=== PATIENT | female | born 1980 | race Caucasian/White ===

== ENCOUNTER 2016-10-20 11:15 | Emergency (ER) | payer SELFPAY ==
[2016-10-20 13:43] VITALS: BP 148/86
--- NOTE | 2016-10-20 14:21 | UC ---
Jo Anderson Salem, scribed for Melinda Maldonado MD on 10/20/16 at 1348 . Dental HPI - HPI Summary HPI Summary: Patient is 36 y/o female who presents to the with a lower left dental discomfort and abscess since this morning. Pt states tooth broke on Fri. She reports a headache, but denies chills, fever, or any rashes. Pt took Ibuprofen at 0630 this morning with little improvement.No ear pain, neck, cp, sob, abd pain. No difficulty with swallowing. No drooling. She has an appointment with her dentist 8 days from today. Pt has a hx of dental abscess. She reports that the last time she received abx for her tooth was 2 years ago. Pt takes Gabapentin as needed, and Xanax and multivitamin daily. Patients medication reviewed this visit. - History of Current Complaint Chief Complaint: UCDentalProblem Stated Complaint: TOOTH COMPLAINT Time Seen by Provider: 10/20/16 13:04 Hx Obtained From: Patient Hx Last Menstrual Period: 10/15/16 Onset/Duration: Gradual Onset, Lasting Hours, Still Present Severity: Moderate Pain Intensity: 0 Pain Scale Used: 0-10 Numeric Aggravating: Nothing Alleviating: Nothing - Allergies/Home Medications Allergies/Adverse Reactions: Allergies Allergy/AdvReac Type Severity Reaction Status Date / Time Acetaminophen [From Vicodin] Allergy Hives/Diff. Verified 10/20/16 12:59 Breathing/I tching Avocado Allergy Hives/Diff. Verified 10/20/16 12:59 Breathing/I tching Cephalexin [From Keflex] Allergy Joint Pain Verified 10/20/16 13:01 Cyclobenzaprine Allergy Hives/Diff. Verified 10/20/16 12:59 [From Flexeril] Breathing/I tching Hydrocodone [From Vicodin] Allergy Hives/Diff. Verified 10/20/16 12:59 Breathing/I tching Latex Allergy Hives/Diff. Verified 10/20/16 12:59 Breathing/I tching Metaxalone [From Skelaxin] Allergy Hives/Diff. Verified 10/20/16 12:59 Breathing/I tching PMH/Surg Hx/FS Hx/Imm Hx Endocrine History Of: Denies: Diabetes, Thyroid Disease Cardiovascular History Of: Reports: Hypertension - NOT BEING TREATED FOR HIGH BLOOD PRESSURE Denies: Cardiac Disorders, Pacemaker/ICD Respiratory History Of: Reports: Asthma - when GI/ History Of: Denies: Ulcer Psychological History Of: Reports: Depression - Surgical History Surgical History: Yes Surgery Procedure, Year, and Place: TUBAL LIGATION - Family History Known Family History: Positive: Hypertension Negative: Diabetes - Social History Alcohol Use: None Substance Use Type: None Substance Use Comment - Amount & Last Used: OXYCODONE Smoking Status (MU): Light Every Day Tobacco Smoker Type: Cigarettes Amount Used/How Often: 1/2 PPD Have You Smoked in the Last Year: Yes Household Exposure Type: Cigarettes Review of Systems Constitutional: Negative Skin: Negative Eyes: Negative ENT: Other - Left lower dental abscess. Respiratory: Negative Cardiovascular: Negative Gastrointestinal: Negative Genitourinary: Negative Motor: Negative Neurovascular: Negative Musculoskeletal: Negative Neurological: Headache All Other Systems Reviewed And Are Negative: Yes Physical Exam Triage Information Reviewed: Yes Appearance: Well-Appearing, Well-Nourished, Pain Distress Vital Signs: Initial Vital Signs Temp 97.5 F 10/20/16 12:55 Pulse 66 10/20/16 12:55 Resp 18 10/20/16 12:55 BP 117/74 10/20/16 12:55 Pulse Ox 100 10/20/16 12:55 Vital Signs Reviewed: Yes Eye Exam: Normal Eyes: Positive: Conjunctiva Clear, Conjunctiva Inflamed ENT: Positive: Pharynx normal, Pharyngeal erythema, TMs normal Dental Exam: Other - #20 large cavity and broken at gumline. + TTP no fluctuance. No discharge No edema of gum Pt with mild edema at left mandible. no erythema. No fluctance. No TTP skin Dental: Positive: Percussion Tenderness @, Gross Decay/Caries @. Negative: Cervical Lymphadenopathy, Bleeding Cardiovascular Exam: Normal Musculoskeletal Exam: Normal Musculoskeletal: Positive: Strength Intact Neurological Exam: Normal Neurological: Positive: Alert, Muscle Tone Normal Psychological Exam: Normal Skin Exam: Normal Dental Complaint Course/Dx - Course Course Of Treatment: Blood pressure noted and patient recommended to follow up with PCP in 7-10 days. Pt with broken tooth, dental cavity with mild facial edema. Will start Clinda. swish/spit. motrin/apap. Pt has dentist appt next week. return prn - Differential Dx/Diagnosis Differential Diagnosis/Dx: Dental Abscess, Dental Caries Provider Diagnoses: dental infection Discharge - Discharge Plan Condition: Stable Disposition: HOME Prescriptions: Clindamycin Cap(NF) [Cleocin 300 mg Cap(NF)] 300 mg PO TID #21 cap Patient Education Materials: Dental Abscess (ED) Referrals: Kaley John MD [Primary Care Provider] - Additional Instructions: - Stay well hydrated - drink plenty of non-caffinated beverages - Take antibiotics as prescribed until gone. These will likely cause diarrhea - It recommended you take yogurt while taking this medication - Swish and spit warm salt water rinses 2-3 times a day - Okay to alternate ibuprofen (Advil, motrin) and tylenol every 3 hours for pain. Take with food - Keep your appointment as scheduled with your dentist. Contact your dentist or return with questions or concerns The documentation as recorded by the Jo white Salem accurately reflects the service I personally performed and the decisions made by , Melinda Maldonado MD.
== END 2016-10-20 14:15 | disposition home or self-care (01) ==
LOC: UCEAST 11:15
DX: K04.7 Periapical abscess without sinus (principal); I10 Essential (primary) hypertension; F32.9 Major depressive disorder, single episode, unspecified; F17.210 Nicotine dependence, cigarettes, uncomplicated; Z88.3 Allergy status to other anti-infective agents; Z88.5 Allergy status to narcotic agent; Z91.040 Latex allergy status
CPT/HCPCS: 99212; G0463

== ENCOUNTER 2016-12-03 09:37 | Emergency (ER) | payer SELFPAY ==
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
[2016-12-03 11:12] VITALS: BP 108/71
== END 2016-12-03 11:07 | disposition home or self-care (01) ==
LOC: ED 09:37
DX: S91.341A Puncture wound with foreign body, right foot, initial encounter (principal); V49.9XXA Car occupant (driver) (passenger) injured in unspecified traffic accident, initial encounter; Y93.9 Activity, unspecified; Y92.9 Unspecified place or not applicable; Y99.9 Unspecified external cause status
CPT/HCPCS: 99283

== ENCOUNTER 2017-04-15 11:24 | Emergency (ER) | payer SELFPAY ==
[2017-04-15] MEDS ORDERED: diPHENhydraMINE IV* 50 MG/ML 1 ml VIAL (BENADRYL) IV ONE (12:37)
[2017-04-15] MEDS ORDERED: Ketorolac INJ* 30 MG/ML 1 ML VIAL IV PUSH ONE (12:37)
--- NOTE | 2017-04-15 12:39 | ED ---
Bite Injury/Animal - HPI Summary HPI Summary: Pt here w/ spider bite to upper inner lip by a sac spider at 1:30am today. She was drinking out of her [employer] mug when she felt like she was being stung along her upper lip - she spit as she thought she had a bee in her mouth and saw a spider. She took a picture and brought this with her - it does appear to be sac spider which can bite in this fashion. She currently has swelling of her upper lip and Rt cheek - able to breath and swallow w/o difficulty. Took 25mg bendaryl so far. Denies fever, chills, N/V/D. Does have a low grade headache starting. Many environmental and medications allergies - no h/o anaphylaxis from insect bites/stings. - History of Current Complaint Chief Complaint: EDGeneral Stated Complaint: SPIDER BITE Time Seen by Provider: 04/15/17 12:06 Hx Obtained From: Patient Hx Last Menstrual Period: 10/15/16 Pain Intensity: 6 - Allergies/Home Medications Allergies/Adverse Reactions: Allergies Allergy/AdvReac Type Severity Reaction Status Date / Time Acetaminophen [From Vicodin] Allergy Hives/Diff. Verified 10/20/16 12:59 Breathing/I tching Avocado Allergy Hives/Diff. Verified 10/20/16 12:59 Breathing/I tching Cephalexin [From Keflex] Allergy Joint Pain Verified 10/20/16 13:01 Cyclobenzaprine Allergy Hives/Diff. Verified 10/20/16 12:59 [From Flexeril] Breathing/I tching Hydrocodone [From Vicodin] Allergy Hives/Diff. Verified 10/20/16 12:59 Breathing/I tching Latex Allergy Hives/Diff. Verified 10/20/16 12:59 Breathing/I tching Metaxalone [From Skelaxin] Allergy Hives/Diff. Verified 10/20/16 12:59 Breathing/I tching PMH/Surg Hx/FS Hx/Imm Hx Previously Healthy: Yes Endocrine/Hematology History: Denies: Hx Anticoagulant Therapy, Hx Blood Disorders, Hx Diabetes, Hx Thyroid Disease, Autoimmune Disease Cardiovascular History: Reports: Hx Hypertension - NOT BEING TREATED FOR HIGH BLOOD PRESSURE Denies: Hx Pacemaker/ICD Respiratory History: Reports: Hx Asthma - when GI History: Denies: Hx Ulcer History: Reports: Other Problems/Disorders - PIP Musculoskeletal History: Reports: Hx Back Problems Sensory History: Denies: Hx Hearing Aid Neurological History: Reports: Hx Headaches Denies: Other Neuro Impairments/Disorders Psychiatric History: Reports: Hx Depression, Hx Panic Disorder - takes xanax for anxiety - Surgical History Surgery Procedure, Year, and Place: TUBAL LIGATION - Immunization History Immunizations Up to Date: Yes Infectious Disease History: No Infectious Disease History: Denies: Hx Hepatitis, Hx Human Immunodeficiency Virus (HIV), History Other Infectious Disease, Traveled Outside the [place] in Last 30 Days - Family History Known Family History: Positive: Hypertension Negative: Diabetes - Social History Occupation: Employed Full-time - self employed as COMMERCIAL MARKETING SPECIALIST Lives: With Family Alcohol Use: Rare Hx Substance Use: No - pt denies illicit drug use Substance Use Type: Reports: None Substance Use Comment - Amount & Last Used: OXYCODONE Hx Tobacco Use: Yes Smoking Status (MU): Light Every Day Tobacco Smoker Type: Cigarettes Amount Used/How Often: 1/2 PPD Have You Smoked in the Last Year: Yes Review of Systems Constitutional: Negative Positive: Blurred Vision ENT: Other - swollen lip per HPI Negative: Sore Throat, Ear Ache, Nasal Discharge Respiratory: Negative Negative: Shortness Of Breath Gastrointestinal: Negative Negative: Abdominal Pain, Vomiting, Diarrhea, Nausea Positive: no symptoms reported Musculoskeletal: Negative Skin: Other - see HPI Positive: Headache - see HPI. Negative: Weakness, Paresthesia, Numbness, Syncope, Slurred Speech Psychological: Normal All Other Systems Reviewed And Are Negative: Yes Physical Exam Triage Information Reviewed: Yes Vital Signs On Initial Exam: Initial Vitals Temp Pulse Resp BP Pulse Ox 97.9 F 73 16 128/82 98 04/15/17 11:40 04/15/17 11:40 04/15/17 11:40 04/15/17 11:40 04/15/17 11:40 Vital Signs Reviewed: Yes Appearance: Positive: Well-Nourished - appears to be in mild distress - resting on stretcher upon entrance to room - Rt cheek w/ mild edema, mild nasolabial blunting - TTP; no submandibular nor cc LN's palpated Skin: Positive: Warm, Dry Head/Face: Positive: Other - as above Eyes: Positive: Normal, EOMI, BEATRIS, Conjunctiva Clear. Negative: Conjunctiva Inflammed, Discharge ENT: Positive: Hearing grossly normal, Pharynx normal, Other - upper lip w/ central and Rt sided edema - no entrance wound observed but pt reports she saw 2 fang brumfield immediately after bite within mucosa. Negative: Nasal congestion, Nasal drainage, Tonsillar swelling, Tonsillar exudate Dental: Positive: Gross Decay/Caries @ Neck: Positive: Supple, Nontender, No Lymphadenopathy Respiratory/Lung Sounds: Positive: Clear to Auscultation, Breath Sounds Present. Negative: Stridor, Wheezes Cardiovascular: Positive: Normal, RRR Abdomen Description: Positive: Soft Bowel Sounds: Positive: Present Musculoskeletal: Positive: Normal, Strength/ROM Intact Neurological: Positive: Normal, Sensory/Motor Intact, Alert, Oriented to Person Place, Time, CN Intact II-III Psychiatric: Positive: Normal - concerned but cooperative Diagnostics - Vital Signs Vital Signs Temp Pulse Resp BP Pulse Ox 04/15/17 11:40 97.9 F 73 16 128/82 98 - Laboratory Lab Statement: Any lab studies that have been ordered have been reviewed, and results considered in the medical decision making process. Bite Injury Course/Dx - Course Course Of Treatment: Pt presents w/ sac spider bite to upper lip w/ swelling, pain and headache. These are common results of a bite which is reported by up to date as having a low risk of necrosis and if it does occur, is mild. Educated pt about what to expect and when to seek further medical attention. She agrees w/ plan. Will refrain from steroids to prevent furthering risk of necrosis. Does not appear to have anaphylaxis. - Diagnoses Provider Diagnosis: Spider bite Discharge - Discharge Plan Condition: Stable Disposition: HOME Patient Education Materials: Insect Bite or Sting (ED) Referrals: Kaley John MD [Primary Care Provider] - Additional Instructions: Up to Date: Yellow sac spiders (Cheiracanthium spp.) are common indoor resident spiders in [place], but can occupy indoor and outdoor niches and are distributed worldwide. In human environments, they can be found in garden sheds, garages, house foundations, window andry, between folds of curtains, and baseboards. While reputed in prior literature to be a cause of skin necrosis, more recent case series have not identified skin necrosis in association with documented yellow sac spider bites. They can, however, cause painful bites similar to bee stings. This species is very aggressive and is known to bite suddenly while crawling over its victims. Because the bite is painful, it is often rapidly recognized with recovery of the spider. Redness at the bite site was also common. Other local effects included swelling and pruritus. The median duration of pain was approximately two hours but pain lasted 2 days in one patient. Systemic effects (eg, nausea, vomiting, or headache) occurred in three patients. Treatment consists of washing of the bite site, pain control with oral analgesics (eg, ibuprofen 600mg every 6 hours with food as needed for pain), and , when present, symptomatic treatment of pruritus with an antihistamine ( benadryl 25-50mg every 6 hours - MAY CAUSE DROWSINESS - DO NOT OPERATE MACHINERY WHILE TAKING). You may also apply ice for control of pain and swelling. Follow-up with PCP if symptoms persist beyond excepted time of duration as mentioned above. If tissue becomes necrotic (black, open wound that grows in size, etc) return to ED *If you develop difficulty breathing or swallowing return to ED
[2017-04-15 13:26] VITALS: BP 108/68
== END 2017-04-15 13:25 | disposition home or self-care (01) ==
LOC: ED 11:24
DX: T63.301A Toxic effect of unspecified spider venom, accidental (unintentional), initial encounter (principal); Y92.9 Unspecified place or not applicable
CPT/HCPCS: 96374; 96375; 99282; J1200; J1885

== ENCOUNTER 2017-07-18 11:58 | Emergency (ER) | payer OTHER ==
[2017-07-18] MEDS ORDERED: Clindamycin VIAL(*) 150 MG in NS 0.9% 50 ML* 50 ML IVPB ONE (12:26)
[2017-07-18] MEDS ORDERED: NS 0.9% 50 ML* 50 ML ONE (12:35)
[2017-07-18] MEDS ORDERED: Clindamycin CAP* 150 MG PO ONE ×2 (12:56→13:14)
[2017-07-18] MEDS ORDERED: Clindamycin CAP* 150 MG ONE (13:10)
[2017-07-18 13:38] VITALS: BP 134/42
--- NOTE | 2017-07-19 17:05 | ED ---
Chris Anderson Nikita, scribed for Ryan Crooks MD on 07/18/17 at 1232 . Throat Pain/Nasal Congestion - HPI Summary HPI Summary: This patient is a 37 year old F presenting to ED with a chief complaint of right -sided facial swelling since 0930 today. Pt states that her dental cap fell off 3 days ago. The patient rates the pain 0/10 in severity. Symptoms aggravated and alleviated by nothing. Patient denies difficulty swallowing. - History of Current Complaint Chief Complaint: EDDentalPain Time Seen by Provider: 07/18/17 12:18 Hx Obtained From: Patient Onset/Duration: Sudden Onset, Lasting Hours, Still Present Associated Signs And Symptoms: Positive: Negative - Patient denies difficulty swallowing. - Allergies/Home Medications Allergies/Adverse Reactions: Allergies Allergy/AdvReac Type Severity Reaction Status Date / Time Acetaminophen [From Vicodin] Allergy Hives/Diff. Verified 10/20/16 12:59 Breathing/I tching Avocado Allergy Hives/Diff. Verified 10/20/16 12:59 Breathing/I tching Cephalexin [From Keflex] Allergy Joint Pain Verified 10/20/16 13:01 Cyclobenzaprine Allergy Hives/Diff. Verified 10/20/16 12:59 [From Flexeril] Breathing/I tching Hydrocodone [From Vicodin] Allergy Hives/Diff. Verified 10/20/16 12:59 Breathing/I tching Latex Allergy Hives/Diff. Verified 10/20/16 12:59 Breathing/I tching Metaxalone [From Skelaxin] Allergy Hives/Diff. Verified 10/20/16 12:59 Breathing/I tching PMH/Surg Hx/FS Hx/Imm Hx Endocrine/Hematology History: Denies: Hx Anticoagulant Therapy, Hx Blood Disorders, Hx Diabetes, Hx Thyroid Disease Cardiovascular History: Reports: Hx Hypertension - NOT BEING TREATED FOR HIGH BLOOD PRESSURE Denies: Hx Pacemaker/ICD Respiratory History: Reports: Hx Asthma - when GI History: Denies: Hx Ulcer History: Reports: Other Problems/Disorders - PIP Musculoskeletal History: Reports: Hx Back Problems Sensory History: Denies: Hx Hearing Aid Neurological History: Reports: Hx Headaches Denies: Other Neuro Impairments/Disorders Psychiatric History: Reports: Hx Depression, Hx Panic Disorder - takes xanax for anxiety - Surgical History Surgery Procedure, Year, and Place: TUBAL LIGATION Infectious Disease History: No Infectious Disease History: Denies: Hx Hepatitis, Hx Human Immunodeficiency Virus (HIV), History Other Infectious Disease, Traveled Outside the [place] in Last 30 Days - Family History Known Family History: Positive: Hypertension Negative: Diabetes - Social History Alcohol Use: None Hx Substance Use: No - pt denies illicit drug use Substance Use Type: Reports: None Substance Use Comment - Amount & Last Used: OXYCODONE Hx Tobacco Use: Yes Smoking Status (MU): Light Every Day Tobacco Smoker Type: Cigarettes Amount Used/How Often: 1/2 PPD Have You Smoked in the Last Year: Yes Review of Systems Negative: Fever Positive: Other - right sided facial swelling. denies difficulty swallowing All Other Systems Reviewed And Are Negative: Yes Physical Exam - Summary Physical Exam Summary: VITAL SIGNS: Reviewed. GENERAL: ~Patient is a well-developed and nourished (FEMALE) who is lying comfortable in the stretcher. ~Patient is not in any acute respiratory distress. HEAD AND FACE: No signs of trauma. ~No ecchymosis, hematomas or skull depressions. No sinus tenderness. EYES: PERRLA, EOMI x 2, No injected conjunctiva, no nystagmus. EARS: Hearing grossly intact. Ear canals and tympanic membranes are within normal limits. MOUTH: Dental cavity in tooth number 7. Right side facial swelling. No trismus. No gum swelling. No airway obstruction. No difficulty swallowing. NECK: Supple, trachea is midline, no adenopathy, no JVD, no carotid bruit, no c- spine tenderness, neck with full ROM. CHEST: Symmetric, no tenderness at palpation LUNGS: Clear to auscultation bilaterally. No wheezing or crackles. CVS: Regular rate and rhythm, S1 and S2 present, no murmurs or gallops appreciated. ABDOMEN: Soft, non-tender. No signs of distention. No rebound no guarding, and no masses palpated. Bowel sounds are normal. EXTREMITIES: FROM in all major joints, no edema, no cyanosis or clubbing. NEURO: Alert and oriented x 3. No acute neurological deficits. Speech is normal and follows commands. SKIN: Dry and warm Triage Information Reviewed: Yes Vital Signs On Initial Exam: Initial Vitals Temp Pulse Resp BP Pulse Ox 97.4 F 102 20 125/89 96 07/18/17 12:08 07/18/17 12:08 07/18/17 12:08 07/18/17 12:08 07/18/17 12:08 Vital Signs Reviewed: Yes - Schlater Coma Scale Coma Scale Total: 15 Diagnostics - Vital Signs Vital Signs Temp Pulse Resp BP Pulse Ox 07/18/17 12:08 97.4 F 102 20 125/89 96 - Laboratory Lab Statement: Any lab studies that have been ordered have been reviewed, and results considered in the medical decision making process. EENT Course/Dx - Course Assessment/Plan: This patient is a 37 year old F presenting to ED with a chief complaint of right-sided facial swelling since 929 today. Pt will be discharged with clindamycin and instructions to follow up with [facility] on . Pt will be discharged and is agreeable with this plan. - Differential Diagnoses Differential Diagnoses: Other - facial swelling, dental infection, dental cavity - Diagnoses Provider Diagnoses: Facial swelling, Dental infection, Dental cavity Discharge - Discharge Plan Condition: Stable Disposition: HOME Prescriptions: Clindamycin HCl [Clindamycin 150 MG CAP*] 150 mg PO QID #40 cap Patient Education Materials: Dental Abscess (ED), Toothache (ED) Additional Instructions: Return to the ED if you experience difficulty swallowing, drooling, airway obstruction, increased swelling or any other symptoms. Follow up with [facility] on . The documentation as recorded by the Chris white Nikita accurately reflects the service I personally performed and the decisions made by Valeriy tyson Walter, MD.
== END 2017-07-18 13:36 | disposition home or self-care (01) ==
LOC: ED 11:58
DX: K04.7 Periapical abscess without sinus (principal); K02.9 Dental caries, unspecified; F41.9 Anxiety disorder, unspecified; Z88.5 Allergy status to narcotic agent; F17.210 Nicotine dependence, cigarettes, uncomplicated
CPT/HCPCS: 99282; A9270-GY

== ENCOUNTER 2018-10-20 08:20 | Day surgery (SDC) | payer BC, OTHER ==
[~2018-10-20 08:20] MED LIST: Buffered Lidocaine 1% SYRIN* 1 ML/SYRINGE INTRADERM ONE; Lactated Ringers 1000 ML Bag* 1,000 ML IV SCH
[2018-10-20] MEDS ORDERED: Lidocaine 2% PF * 5 ML VIAL ONE ×2 (09:15→11:40)
[2018-10-20] MEDS ORDERED: Propofol* 10 MG/ML 20 ML BTL ONE ×2 (09:15→11:40)
[2018-10-20] MEDS ORDERED: Midazolam* 1 MG/ML 2 ML VIAL (2 MG) ONE (09:15)
[2018-10-20] MEDS ORDERED: fentaNYL* 50 MCG/ML 2 ML VIAL (100 MCG VIAL) ONE (09:15)
[2018-10-20] MEDS ORDERED: Clindamycin 900 MG IVPREMIX(* 900 MG/50 ML SDV IV ONE (09:35)
[2018-10-20] MEDS ORDERED: Bupivacaine 0.25% SDV* 30 ML ONE (09:49)
[2018-10-20] MEDS ORDERED: Dexamethasone IV* 4 MG/ML 1 ML (4 MG) ONE ×3 (10:18→12:21)
[2018-10-20] MEDS ORDERED: Naloxone* 0.4 MG/ML 1 ML VIAL IV PRN (10:38)
[2018-10-20] MEDS ORDERED: DiMENhydriNATE IV* 50 MG/ML VIAL IV PUSH PRN (10:38)
[2018-10-20 11:47] VITALS: BP 120/67
[2018-10-20] MEDS ORDERED: Ondansetron INJ* 2 MG/ML VIAL ONE (12:21)
[2018-10-20] MEDS ORDERED: Metoclopramide IV* 5 MG/ML 2 ML VIAL ONE (12:21)
[2018-10-20] MEDS ORDERED: Ketorolac INJ* 30 MG/ML 1 ML VIAL ONE (12:51)
--- NOTE | 2018-10-20 20:59 | OP ---
OPERATIVE REPORT: DATE OF OPERATION: 10/20/18 - SOLO DATE OF : 78 SURGEON: Willy Baca MD MOLDING MACHINE OPERATOR: QUOC Feng ANESTHESIOLOGIST: Dr. Jones. ANESTHESIA: General. PRE-OP DIAGNOSES: 1. Right carpal tunnel syndrome. 2. Right cubital tunnel syndrome. POST-OP DIAGNOSES: 1. Right carpal tunnel syndrome. 2. Right cubital tunnel syndrome. OPERATIVE PROCEDURE: 1. Right endoscopic carpal tunnel release. 2. Right in-situ cubital tunnel release. INDICATIONS: Anne has carpal and cubital tunnel syndromes. We talked about her treatment options and was not getting better with time and activity modification and other nonoperative treatments. So, we elected to proceed with nerve decompression surgery. She understands the risk of numbness around the elbow and persistent sensitivity as well as neurovascular injury. ESTIMATED BLOOD LOSS: 2 mL. COMPLICATIONS: None. FINDINGS: See above and below. DESCRIPTION OF PROCEDURE: Anne was seen in the preoperative holding area. The correct side, site and procedure were identified. We came back to the operating room. The arm was prepped and draped in the usual fashion and a time- out was performed. The arm was exsanguinated with the Esmarch and the tourniquet was inflated to 250 mmHg. I began by making a transverse 1 cm incision about a centimeter proximal to the wrist flexion crease just ulnar to the palmaris longus tendon. Dissection was carried down bluntly and the distal antebrachial fascia was split by spreading with the tenotomy scissors transversally and then a 2 prong skin hook was placed to retract it up and out of the way. The synovial stripper followed by the dilators were used to dilate open the canal. The MicroAir endoscopic carpal tunnel system was advanced down into the carpal tunnel and in appropriate position, I pulled the trigger to elevate the blade and then the transverse carpal ligament was released as I pulled back. A Remberto retractor was then placed and I checked the decompression, everything was looking good. I went ahead and released the distal antebrachial fascia proximally with the tenotomy scissors. I irrigated out the wound and the skin was closed with 4-0 nylon suture. I then made a curvilinear incision, centered over the cubital tunnel on the posterior medial elbow. Dissection was carried down and care was taken to preserve the medial antebrachial cutaneous nerve. I began the release just proximal to Morris's ligament, this was released distally through the Morris' s ligament and then the superficial FCU fascia was released. I then split the 2 edges of the FCU and the subfascial layer was released. I then came proximally and placed an appendiceal retractor and released the fascia overlying the ulnar nerve there all the way up past the arcade of [place]. Hemostasis was then obtained with the Bovie and once everything was nice and dry , we irrigated out the wound and I checked for any subluxation of the nerve, there was none. Subcutaneous tissue was reapproximated with 3-0 Vicryl. Skin was closed with 3-0 Monocryl and Steri- Strips. A 0.25% Marcaine was infiltrated all around the operative areas. The wounds were dressed with Xeroform, 4x4s, sterile Webril and ABD at the elbow and Bogdan bandages. I had placed some Steri-Strips over the wound at the elbow as well. She was woken up and taken to the recovery room in stable condition. [id number]/[facility] #: [id number] EMELY
== END 2018-10-20 12:21 | disposition home or self-care (01) ==
LOC: OREAST 08:20
PROVIDERS: ATTEND Orthopaedic Surgery Hand Surgery
DX: G56.01 Carpal tunnel syndrome, right upper limb (principal); G56.21 Lesion of ulnar nerve, right upper limb; J45.909 Unspecified asthma, uncomplicated; Z72.0 Tobacco use; K21.9 Gastro-esophageal reflux disease without esophagitis; F41.8 Other specified anxiety disorders; F11.21 Opioid dependence, in remission
CPT/HCPCS: J1100; J1885; J2250; J2405; J2704; J2765; J3010; J3490

== ENCOUNTER 2019-03-09 20:31 | Emergency (ER) | payer BC, OTHER ==
[2019-03-09] MEDS ORDERED: NS 0.9% 1000 ML** 1,000 ML IV ONE (21:17)
[2019-03-09] MEDS ORDERED: Ketorolac INJ* 15 MG/ML 1 ML VIAL IM ONE (21:17)
[2019-03-09] MEDS ORDERED: Ondansetron INJ* 2 MG/ML VIAL IV ONE (21:17)
[2019-03-09] MEDS ORDERED: Pantoprazole IV* 40 MG IV ONE (21:17)
[2019-03-09] MEDS ORDERED: Ketorolac INJ* 30 MG/ML 1 ML VIAL IV PUSH ONE (21:50)
[2019-03-09 21:51] LABS: ABS Basophils 0.1 10^3/ul (0-0.2); ABS Eosinophils 0.1 10^3/ul (0-0.6); ABS Lymphocytes 2.1 10^3/ul (1.0-4.8); ABS Neutrophils 10.5 10^3/ul (1.5-7.7); Hematocrit 40 % (35-47); Hemoglobin 13.9 g/dL (12.0-16.0); Lymphocyte % 15.2 %; Mean Corpuscular HGB Conc 35 g/dL (31-36); Mean Corpuscular Hemoglobin 30 pg (27-31); Mean Corpuscular Volume 86 fL (80-97); Mean Platelet Volume 8.7 fL (7.4-10.4); Platelet Count 283 10^3/uL (150-450); Red Blood Count 4.72 10^6 /uL (3.70-4.87); Red Cell Distribution Width 13 % (10-15); White Blood Count 13.8 10^3/uL (3.5-10.8)
[2019-03-09 22:09] LABS: ALT 26 U/L (7-52); AST 19 U/L (13-39); Albumin/Globulin Ratio 1.5 (1-3); Alkaline Phosphatase 71 U/L (34-104); Anion Gap 4 mmol/L (2-11); BUN/Creatinine Ratio 14.6 (8-20); Blood Urea Nitrogen 12 mg/dL (6-24); CO2 Carbon Dioxide 30 mmol/L (22-32); Calcium 9.2 mg/dL (8.6-10.3); Chloride 105 mmol/L (101-111); EGFR African American 93.9 (>60); EGFR Non-African American 77.6 (>60); Globulin 2.6 g/dL (2-4); Glucose 94 mg/dL (70-100); Potassium 4.1 mmol/L (3.5-5.0); Sodium 139 mmol/L (135-145); Total Protein 6.6 g/dL (6.4-8.9)
[2019-03-09 22:16] LABS: HCG Pregnancy < 0.60 mIU/mL
[2019-03-09 22:53] LABS: Urine Appearance Cloudy; Urine Bilirubin Negative (Negative); Urine Blood Negative (Negative); Urine Color Yellow; Urine Glucose Negative (Negative); Urine Ketones Negative (Negative); Urine Nitrite Negative (Negative); Urine Protein Negative (Negative); Urine Urobilinogen Negative (Negative)
[2019-03-10] MEDS ORDERED: Iohexol 300* (CONTRAST) 10 ML SDV IV ONE (00:36)
[2019-03-10 01:23] VITALS: BP 131/64
--- NOTE | 2019-03-10 01:57 | ED ---
Abdominal Pain/Female - HPI Summary HPI Summary: Patient is a 38 year old F present to [facility] with a chief complaint of chest pain that has been present since July 2018 but has worsened at 1700. Patient states greasy food aggravates her symptoms. Patient states that she took Ibuprofen with no improvement to symptoms. Patient reports nausea and vomiting. Patient denies any fever. The patient rates the pain 0/10 in severity. Home Medications Medication Instructions Recorded Confirmed Type Ibuprofen 800 tab PO Q8HR PRN 05/25/12 03/09/19 History Multivitamin [Multivitamins] 1 cap PO QAM 05/25/12 03/09/19 History EPINEPHrine [Epipen 2-Lele] 0.3 mg IM ONCE PRN #1 inj 08/29/15 03/09/19 Rx Cetirizine* [ZyrTEC*] 10 mg PO BEDTIME 12/25/15 03/09/19 History LoraTADine TAB(NF) [Claritin TAB*] 10 mg PO QAM 12/25/15 03/09/19 History Albuterol HFA INHALER* [Ventolin 1 - 2 puff INH Q4H PRN 10/13/18 03/09/19 History HFA Inhaler*] Buprenorp/Nalox 8-2 MG FILM 1 each SL TID PRN 10/13/18 03/10/19 History [Suboxone 8 mg-2 mg Sl Film] Omeprazole 40 mg PO BID 10/13/18 03/09/19 History Sertraline HCl [Zoloft] 50 mg PO QAM 10/13/18 03/09/19 History - History of Current Complaint Chief Complaint: EDAbdPain Stated Complaint: ABD PAIN PER PT Time Seen by Provider: 03/09/19 21:17 Hx Obtained From: Patient Hx Last Menstrual Period: 10/15/16 ?: No Onset/Duration: Gradual Onset, Lasting Weeks - July 2018 Timing: Constant Severity Currently: Severe Pain Intensity: 6 Pain Scale Used: 0-10 Numeric Location: Epigastric Radiates: Yes Radiates to: Chest Character: Sharp Aggravating Factor(s): Food - greasy Alleviating Factor(s): Nothing Associated Signs and Symptoms: Positive: Nausea, Vomiting. Negative: Fever Allergies/Adverse Reactions: Allergies Allergy/AdvReac Type Severity Reaction Status Date / Time acetaminophen Allergy Severe Difficulty Verified 03/09/19 21:01 Breathing avocado Allergy Severe HIVES,Difficulty Verified 03/09/19 21:01 Breathing banana Allergy Severe hives, Verified 03/09/19 21:01 cephalexin Allergy Severe Hives Verified 03/09/19 21:01 cyclobenzaprine Allergy Severe HIVES,Difficulty Verified 03/09/19 21:01 Breathing latex Allergy Severe HIVES,Difficulty Verified 03/09/19 21:01 Breathing metaxalone Allergy Severe HIVES,Difficulty Verified 03/09/19 21:01 Breathing pear Allergy Severe Difficulty Verified 03/09/19 21:01 Breathing PMH/Surg Hx/FS Hx/Imm Hx Endocrine/Hematology History: Denies: Hx Anticoagulant Therapy, Hx Blood Disorders, Hx Diabetes, Hx Thyroid Disease Cardiovascular History: Reports: Hx Hypertension - NOT BEING TREATED FOR HIGH BLOOD PRESSURE Denies: Hx Pacemaker/ICD Respiratory History: Reports: Hx Asthma GI History: Reports: Hx Gastroesophageal Reflux Disease Denies: Hx Ulcer History: Reports: Hx Kidney Infection, Other Problems/Disorders - PIP Musculoskeletal History: Reports: Hx Back Problems, Hx Bursitis - left hip Sensory History: Reports: Hx Contacts or Glasses - glasses Denies: Hx Hearing Aid Opthamlomology History: Reports: Hx Contacts or Glasses - glasses Neurological History: Reports: Hx Headaches, Hx Migraine Denies: Other Neuro Impairments/Disorders Psychiatric History: Reports: Hx Anxiety, Hx Depression, Hx Panic Disorder - takes xanax for anxiety - Cancer History Hx Chemotherapy: No - Surgical History Surgery Procedure, Year, and Place: TUBAL LIGATION Hx Anesthesia Reactions: No Infectious Disease History: No Infectious Disease History: Denies: Hx Hepatitis, Hx Human Immunodeficiency Virus (HIV), History Other Infectious Disease, Traveled Outside the [place] in Last 30 Days - Family History Known Family History: Positive: Hypertension Negative: Diabetes - Social History Alcohol Use: None Hx Substance Use: No - pt denies illicit drug use Substance Use Type: Reports: None Substance Use Comment - Amount & Last Used: OXYCODONE Hx Tobacco Use: Yes Smoking Status (MU): Light Every Day Tobacco Smoker Type: Cigarettes Amount Used/How Often: 5 cigarettes a day, working on quitting Have You Smoked in the Last Year: Yes Review of Systems Negative: Fever Positive: Chest Pain Positive: Vomiting, Nausea All Other Systems Reviewed And Are Negative: Yes Physical Exam - Summary Physical Exam Summary: General: Well-developed, morbidly obese FEMALE. moderate discomfort. HEENT: Normocephalic, Atraumatic. Eyes: Conjuctiva normal, PERRL. Ears: TMs within normal limits. Nares: (-) discharge, (-) erythema. Oropharynx: Clear, dry mucous membranes, (-) exudates. Neck: Soft, FROM, (-) lymphadenopathy, (-) thyromegaly, (-) JVD. Cardiovascular: Normal sinus rhythm, (-) murmur. Lungs: Clear to auscultation bilaterally (-) wheezes, (-) rales, (-) rhonchi. Abdomen: Soft, mild tenderness in RUQ and RLQ in epigraphic area, non-distended , (-) organomegaly, normal bowel sounds. Back: (-) CVA tenderness Extremities: No edema. Skin: Warm, dry, (-) rash. Neuro: Alert and oriented x3, no focal deficits. Psychiatric: Mood normal, affect normal. Triage Information Reviewed: Yes Vital Signs On Initial Exam: Initial Vitals Temp Pulse Resp BP Pulse Ox 97.5 F 92 20 135/96 99 03/09/19 20:33 03/09/19 20:33 03/09/19 20:33 03/09/19 20:33 03/09/19 20:33 Vital Signs Reviewed: Yes Diagnostics - Vital Signs Vital Signs Temp Pulse Resp BP Pulse Ox 03/10/19 01:13 79 98 03/10/19 00:53 66 131/64 98 03/10/19 00:39 72 104/61 96 03/09/19 22:23 75 116/61 99 03/09/19 22:00 69 99 03/09/19 21:52 64 129/83 97 03/09/19 20:33 97.5 F 92 20 135/96 99 - Laboratory Lab Results: Lab Results 03/09/19 03/09/19 03/09/19 Range/Units 21:41 21:41 21:41 WBC 13.8 H (3.5-10.8) 10^3/uL RBC 4.72 (3.70-4.87) 10^6 /uL Hgb 13.9 (12.0-16.0) g/dL Hct 40 (35-47) % MCV 86 (80-97) fL MCH 30 (27-31) pg MCHC 35 (31-36) g/dL RDW 13 (10-15) % Plt Count 283 (150-450) 10^3/uL MPV 8.7 (7.4-10.4) fL Neut % (Auto) 75.9 % Lymph % (Auto) 15.2 % Duval % (Auto) 7.3 % Eos % (Auto) 1.0 % Baso % (Auto) 0.6 % Absolute Neuts (auto) 10.5 H (1.5-7.7) 10^3/ul Absolute Lymphs (auto) 2.1 (1.0-4.8) 10^3/ul Absolute Monos (auto) 1.0 H (0-0.8) 10^3/ul Absolute Eos (auto) 0.1 (0-0.6) 10^3/ul Absolute Basos (auto) 0.1 (0-0.2) 10^3/ul Absolute Nucleated RBC 0.0 10^3/ul Nucleated RBC % 0.0 Sodium 139 (135-145) mmol/L Potassium 4.1 (3.5-5.0) mmol/L Chloride 105 (101-111) mmol/L Carbon Dioxide 30 (22-32) mmol/L Anion Gap 4 (2-11) mmol/L BUN 12 (6-24) mg/dL Creatinine 0.82 (0.51-0.95) mg/dL Est GFR ( Amer) 93.9 (>60) Est GFR (Non-Af Amer) 77.6 (>60) BUN/Creatinine Ratio 14.6 (8-20) Glucose 94 (70-100) mg/dL Lactic Acid 1.4 (0.5-2.0) mmol/L Calcium 9.2 (8.6-10.3) mg/dL Total Bilirubin 0.30 (0.2-1.0) mg/dL AST 19 (13-39) U/L ALT 26 (7-52) U/L Alkaline Phosphatase 71 (34-104) U/L Total Protein 6.6 (6.4-8.9) g/dL Albumin 4.0 (3.2-5.2) g/dL Globulin 2.6 (2-4) g/dL Albumin/Globulin Ratio 1.5 (1-3) Lipase 35 (11.0-82.0) U/L Beta HCG, Quant < 0.60 mIU/mL Urine Color Urine Appearance Urine pH (5-9) Ur Specific [place] (1.010-1.030) Urine Protein (Negative) Urine Ketones (Negative) Urine Blood (Negative) Urine Nitrate (Negative) Urine Bilirubin (Negative) Urine Urobilinogen (Negative) Ur Leukocyte Esterase (Negative) Urine Glucose (Negative) 03/09/19 Range/Units 22:42 WBC (3.5-10.8) 10^3/uL RBC (3.70-4.87) 10^6 /uL Hgb (12.0-16.0) g/dL Hct (35-47) % MCV (80-97) fL MCH (27-31) pg MCHC (31-36) g/dL RDW (10-15) % Plt Count (150-450) 10^3/uL MPV (7.4-10.4) fL Neut % (Auto) % Lymph % (Auto) % Duval % (Auto) % Eos % (Auto) % Baso % (Auto) % Absolute Neuts (auto) (1.5-7.7) 10^3/ul Absolute Lymphs (auto) (1.0-4.8) 10^3/ul Absolute Monos (auto) (0-0.8) 10^3/ul Absolute Eos (auto) (0-0.6) 10^3/ul Absolute Basos (auto) (0-0.2) 10^3/ul Absolute Nucleated RBC 10^3/ul Nucleated RBC % Sodium (135-145) mmol/L Potassium (3.5-5.0) mmol/L Chloride (101-111) mmol/L Carbon Dioxide (22-32) mmol/L Anion Gap (2-11) mmol/L BUN (6-24) mg/dL Creatinine (0.51-0.95) mg/dL Est GFR ( Amer) (>60) Est GFR (Non-Af Amer) (>60) BUN/Creatinine Ratio (8-20) Glucose (70-100) mg/dL Lactic Acid (0.5-2.0) mmol/L Calcium (8.6-10.3) mg/dL Total Bilirubin (0.2-1.0) mg/dL AST (13-39) U/L ALT (7-52) U/L Alkaline Phosphatase (34-104) U/L Total Protein (6.4-8.9) g/dL Albumin (3.2-5.2) g/dL Globulin (2-4) g/dL Albumin/Globulin Ratio (1-3) Lipase (11.0-82.0) U/L Beta HCG, Quant mIU/mL Urine Color Yellow Urine Appearance Cloudy Urine pH 7.0 (5-9) Ur Specific [place] 1.010 (1.010-1.030) Urine Protein Negative (Negative) Urine Ketones Negative (Negative) Urine Blood Negative (Negative) Urine Nitrate Negative (Negative) Urine Bilirubin Negative (Negative) Urine Urobilinogen Negative (Negative) Ur Leukocyte Esterase Negative (Negative) Urine Glucose Negative (Negative) Result Diagrams: 03/09/19 21:41 03/09/19 21:41 Lab Statement: Any lab studies that have been ordered have been reviewed, and results considered in the medical decision making process. - CT Abd/Pelvis CT Interpretation Completed By: Radiologist Summary of CT Findings: Abd/Pelvis CT scan reveals, per radiologist, IMPRESSION : There is cholelithiasis without pericholecystic inflammatory change. ED Physician has reviewed this report. - Ultrasound Abdomen Ultrasound Interpretation Completed By: Radiologist Summary of Ultrasound Findings: Abdomen US reveals, per radiologist, IMPRESSION : There are echogenic calculi in the gallbladder lumen consistent with cholelithiasis but no abnormal gallbladder wall thickening, however there was a positive sonographic Steven sign and therefore suspicious for acute cholecystitis. ED Physician has reviewed this report. Abdominal Pain Fem Course/Dx - Course Course Of Treatment: patient with prolonged vaginal bleeding, not heavy. no dizziness or lightheadedness. last depo shot last month. before this patient hadn't had a period in 6 months. no abd pain, fever, or concerns for stds. advised patient to take ibuprofen, two tablets three times daily as needed, with food. [facility] follow up sooner for any worsening symtpoms. - Diagnoses Provider Diagnoses: Cholelithiasis Is Visit Related: No Discharge ED - Sign-Out/Discharge Documenting (check all that apply): Patient Departure - discharge Patient Received Moderate/Deep Sedation with Procedure: No - Discharge Plan Condition: Stable Disposition: HOME Patient Education Materials: Gallstones (ED), Abdominal Pain (ED) Referrals: Care [facility] [Outside] - 3 Days Additional Instructions: Please follow up with your primary care physician for referral for surgery within three days. Please return to ED for any new or worsening symptoms. - Billing Disposition and Condition Condition: STABLE Disposition: Home - Attestation Statements Document Initiated by Yuibe: Yes Documenting Scribe: Radha Ramirez Provider For Whom Julio César is Documenting (Include Credential): Dr. Luly Billingsley MD Scribe Attestation: Radha Anderson scribed for Dr. Luly Billingsley MD on 03/10/19 at 0542. Scribe Documentation Reviewed: Yes Provider Attestation: The documentation as recorded by the Radha white accurately reflects the service I personally performed and the decisions made by me, Dr. Luly Billingsley MD Status of Scribe Document: Viewed
== END 2019-03-10 02:09 | disposition home or self-care (01) ==
LOC: ED 20:31
DX: K80.20 Calculus of gallbladder without cholecystitis without obstruction (principal); I10 Essential (primary) hypertension; K21.9 Gastro-esophageal reflux disease without esophagitis; F41.9 Anxiety disorder, unspecified; F32.9 Major depressive disorder, single episode, unspecified; F17.210 Nicotine dependence, cigarettes, uncomplicated; Z79.899 Other long term (current) drug therapy; Z88.8 Allergy status to other drugs, medicaments and biological substances; Z88.6 Allergy status to analgesic agent; Z88.1 Allergy status to other antibiotic agents; Z91.040 Latex allergy status
CPT/HCPCS: 36415; 74177; 76705; 80053; 81003; 83605; 83690; 84702; 85025; 96361; 96372; 96374; 96375; 99283; J1885; J2405; Q9967

== ENCOUNTER 2019-03-10 12:43 | Inpatient (IN) | payer BC, OTHER ==
[2019-03-10] MEDS ORDERED: Ketorolac INJ* 30 MG/ML 1 ML VIAL IV PUSH ONE (13:21)
[2019-03-10] MEDS ORDERED: Ondansetron INJ* 2 MG/ML VIAL IV ONE (13:21)
[2019-03-10] MEDS ORDERED: Famotidine IV* 10 MG/ML 2 ML (20 mg) IV SLOW PU ONE (13:21)
[2019-03-10 13:25] LABS: ABS Basophils 0.1 10^3/ul (0-0.2); ABS Eosinophils 0.1 10^3/ul (0-0.6); ABS Lymphocytes 2.1 10^3/ul (1.0-4.8); ABS Monocytes 0.8 10^3/ul (0-0.8); ABS Neutrophils 8.2 10^3/ul (1.5-7.7); Eosinophil % 1.3 %; Hematocrit 40 % (35-47); Hemoglobin 13.9 g/dL (12.0-16.0); Lymphocyte % 18.3 %; Mean Corpuscular HGB Conc 35 g/dL (31-36); Mean Corpuscular Hemoglobin 30 pg (27-31); Mean Corpuscular Volume 86 fL (80-97); Mean Platelet Volume 8.6 fL (7.4-10.4); Platelet Count 254 10^3/uL (150-450); Red Blood Count 4.62 10^6 /uL (3.70-4.87); Red Cell Distribution Width 13 % (10-15); White Blood Count 11.3 10^3/uL (3.5-10.8)
--- NOTE | 2019-03-10 13:34 | ED ---
Abdominal Pain/Female - HPI Summary HPI Summary: Pt is a 38 y/o F presenting to the ED with a chief complaint of abd pain onset last night (03/09/19) after eating a cheeseburger in the epigastric/RUQ area. Patient was evaluated at emergency department last night. Labs are unremarkable. Patient did have an ultrasound CAT scan both which showed gallstones but no thickening of the gallbladder no free fluid. Patient was given Toradol here states to have much help. Today, patient went to her provider at the [facility] clinic due to pain. She is a patient at [facility] who has been opioid-free for 15 months treated with Suboxone. Patient has not taken her Suboxone in one week because she is trying off of her medicines. She also reports N/V and decreased appetite. No fevers or chills. Patient states pain is epigastric and weeks to her right upper quadrant and back. Patient states she is on medicine for GERD: She also recently changed her 80mg omeprazole to Nexium, but has not taken any other medication for reflux or pain , including pepto or IBU. LNMP 02/26/19. She is comfortable and agreeable with medications including Pepcid, Zofran, and pain management including Toradol and some morphine. I spoke with the patient and Dr. Angella Allen on speakerphone while the patient was at [facility]. We discussed and agreed upon a plan of treatment that initially includes Toradol and then may include a low dose of Morphine to treat her pain. If the patient does not go to the operating room today, patient will be discharged with a prescription for Percocet. Both Dr. de león as well as patient on agreement of this plan. Patient will then started Suboxone after this time. Dr Allen we'll attempt to talk with Dr. Haider and requested seeing the patient in the emergency department. - History of Current Complaint Chief Complaint: EDAbdPain Stated Complaint: ABDOMINAL PAIN PER PT Time Seen by Provider: 03/10/19 12:54 Hx Obtained From: Patient Hx Last Menstrual Period: 02/26/19 ?: No Timing: Hours Severity Initially: Moderate Severity Currently: Severe Pain Intensity: 8 Pain Scale Used: 0-10 Numeric Location: Discrete At: RUQ, Epigastric Radiates: No Aggravating Factor(s): Movement Alleviating Factor(s): Nothing Associated Signs and Symptoms: Positive: Decreased Appetite, Nausea, Vomiting Allergies/Adverse Reactions: Allergies Allergy/AdvReac Type Severity Reaction Status Date / Time acetaminophen Allergy Severe Difficulty Verified 03/10/19 13:02 Breathing avocado Allergy Severe HIVES,Difficulty Verified 03/10/19 13:02 Breathing banana Allergy Severe hives, Verified 03/10/19 13:02 cephalexin Allergy Severe Hives Verified 03/10/19 13:02 cyclobenzaprine Allergy Severe HIVES,Difficulty Verified 03/10/19 13:02 Breathing latex Allergy Severe HIVES,Difficulty Verified 03/10/19 13:02 Breathing metaxalone Allergy Severe HIVES,Difficulty Verified 03/10/19 13:02 Breathing pear Allergy Severe Difficulty Verified 03/10/19 13:02 Breathing PMH/Surg Hx/FS Hx/Imm Hx Previously Healthy: Yes Endocrine/Hematology History: Denies: Hx Anticoagulant Therapy, Hx Blood Disorders, Hx Diabetes, Hx Thyroid Disease Cardiovascular History: Reports: Hx Hypertension - NOT BEING TREATED FOR HIGH BLOOD PRESSURE Denies: Hx Pacemaker/ICD Respiratory History: Reports: Hx Asthma GI History: Reports: Hx Gastroesophageal Reflux Disease Denies: Hx Ulcer History: Reports: Hx Kidney Infection, Other Problems/Disorders - PIP Musculoskeletal History: Reports: Hx Back Problems, Hx Bursitis - left hip Sensory History: Reports: Hx Contacts or Glasses - glasses Denies: Hx Hearing Aid Opthamlomology History: Reports: Hx Contacts or Glasses - glasses Neurological History: Reports: Hx Headaches, Hx Migraine Denies: Other Neuro Impairments/Disorders Psychiatric History: Reports: Hx Anxiety, Hx Depression, Hx Panic Disorder - takes xanax for anxiety, Hx Substance Abuse - Cancer History Hx Chemotherapy: No - Surgical History Surgery Procedure, Year, and Place: TUBAL LIGATION. nerve relocation d/t carpal tunnel Hx Anesthesia Reactions: No Infectious Disease History: No Infectious Disease History: Denies: Hx Hepatitis, Hx Human Immunodeficiency Virus (HIV), History Other Infectious Disease, Traveled Outside the [place] in Last 30 Days - Family History Known Family History: Positive: Hypertension, Non-Contributory Negative: Diabetes - Social History Alcohol Use: None Hx Substance Use: Yes Substance Use Type: Reports: Heroin Substance Use Comment - Amount & Last Used: no current use. pt has been opioid free for 15 months as of 03/10/19. Hx Tobacco Use: Yes Smoking Status (MU): Light Every Day Tobacco Smoker Type: Cigarettes Amount Used/How Often: 5 cigarettes a day, working on quitting Have You Smoked in the Last Year: Yes Review of Systems Positive: Other - decreased appetite Positive: Abdominal Pain, Vomiting, Nausea All Other Systems Reviewed And Are Negative: Yes Physical Exam - Summary Physical Exam Summary: Vital Signs Reviewed: Yes A+Ox3, tearful, appears uncomfortable. Eyes: Conjunctiva Clear, BEATRIS. EOM intact and full ENT: Hearing grossly normal TM x 2 clear, mmoist, uvula midline, no exudate, no erythema Neck: Positive: Supple Respiratory: Positive: No respiratory distress, No accessory muscle use + CTA throughout no w/r Cardiovascular: RRR nl s1, s2 no m/r CBT <2 sec abd soft, + TTP epigastric to RUQ, no guarding, no rebound soft Musculoskeletal Exam: GONZALES x 4 without difficulty Strength Intact, ROM Intact Neurological: Positive: Alert, + sensation throughout Psychological: Positive: Normal Response To examiner Skin: Positive: no rash, no ecchymosis Triage Information Reviewed: Yes Vital Signs On Initial Exam: Initial Vitals Temp Pulse Resp BP Pulse Ox 97.9 F 78 18 137/85 99 03/10/19 12:47 03/10/19 12:47 03/10/19 12:47 03/10/19 12:47 03/10/19 12:47 Vital Signs Reviewed: Yes Diagnostics - Vital Signs Vital Signs Temp Pulse Resp BP Pulse Ox 03/10/19 12:47 97.9 F 78 18 137/85 99 - Laboratory Lab Results: Lab Results 03/10/19 Range/Units 13:18 WBC 11.3 H (3.5-10.8) 10^3/uL RBC 4.62 (3.70-4.87) 10^6 /uL Hgb 13.9 (12.0-16.0) g/dL Hct 40 (35-47) % MCV 86 (80-97) fL MCH 30 (27-31) pg MCHC 35 (31-36) g/dL RDW 13 (10-15) % Plt Count 254 (150-450) 10^3/uL MPV 8.6 (7.4-10.4) fL Neut % (Auto) 72.4 % Lymph % (Auto) 18.3 % Roseau % (Auto) 7.4 % Eos % (Auto) 1.3 % Baso % (Auto) 0.6 % Absolute Neuts (auto) 8.2 H (1.5-7.7) 10^3/ul Absolute Lymphs (auto) 2.1 (1.0-4.8) 10^3/ul Absolute Monos (auto) 0.8 (0-0.8) 10^3/ul Absolute Eos (auto) 0.1 (0-0.6) 10^3/ul Absolute Basos (auto) 0.1 (0-0.2) 10^3/ul Absolute Nucleated RBC 0.0 10^3/ul Nucleated RBC % 0.0 Result Diagrams: 03/10/19 13:18 03/10/19 13:18 Lab Statement: Any lab studies that have been ordered have been reviewed, and results considered in the medical decision making process. Re-Evaluation - Re-Evaluation 1st re-eval Re-Evaluation Time: 14:00 Change: Unchanged Comment: Pt has no relief with Toradol. We'll give patient morphine after discussion. Patient's doctor Bennie to review her care. . Page is out to Dr. Haider. Third Eval Re-Evaluation Time: 15:40 Comment: Patient Little relief with the morphine. Dr. Navneet Arceo patient was taken to the operating room. Patient in agreement with plan. Abdominal Pain Fem Course/Dx - Course Course Of Treatment: Patient sent to Emergency department from [facility]. Patient was evaluated last night and diagnosed with gallstones however no acute cholecystitis noted on imaging. Patient continues to have pain. Patient has a history of opiate substance dependence disorder. Patient is on Suboxone through which clinic but has not taken in the last 7 days that she started to get off all medications. Patient with bacteria today because of uncontrolled pain. After a phone consultation patient presents emergency department for pain control. We'll use narcotic if needed. Discussed with patient length. We 'll give Toradol, Pepcid, and Zofran. Patient continued to have severe pain will get some morphine. Will check CBC and chemistries in the discussed with Dr. Mancera. Patient comfortable agreement with plan. - Diagnoses Provider Diagnoses: Cholelithiasis, Abdominal pain Discharge ED - Sign-Out/Discharge Documenting (check all that apply): Patient Departure - Discharge Plan Condition: Stable Disposition: ADMITTED TO [facility] Referrals: No Primary Care Phys,NOPCP [Primary Care Provider] - - Billing Disposition and Condition Condition: STABLE Disposition: Admitted to [facility] - Attestation Statements Document Initiated by Julio César: Yes Documenting Scribe: Ladan Plascencia Provider For Whom Julio César is Documenting (Include Credential): Melinda Maldonado MD. Scribe Attestation: ILadan, scribed for Melinda Maldonado MD. on 03/10/19 at 1552. Scribe Documentation Reviewed: Yes Provider Attestation: The documentation as recorded by the scribe, Ladan Plascencia accurately reflects the service I personally performed and the decisions made by me, Melinda Maldonado MD. Status of Scribe Document: Viewed Consult Consult: [id number] - I spoke with the OR nurse who states that Dr. Haider will be coming into the ED in an hour. 1530 - Dr. Haider will be taking the pt to the OR.
[2019-03-10 13:45] LABS: Albumin/Globulin Ratio 1.6 (1-3); BUN/Creatinine Ratio 15.5 (8-20); EGFR African American 110.9 (>60); EGFR Non-African American 91.6 (>60); Globulin 2.5 g/dL (2-4); Magnesium 1.9 mg/dL (1.9-2.7); Total Bilirubin 0.3 mg/dL (0.2-1.0); Total Protein 6.5 g/dL (6.4-8.9)
[2019-03-10] MEDS: NS 0.9% 1000 ML** 1,000 ML IV ONE ×2 (13:46→20:02)
[2019-03-10] MEDS ORDERED: Morphine 4 MG/ML VIAL (1 ml) 4 MG/ML VIAL IV ONE (14:00)
[2019-03-10] MEDS ORDERED: Ondansetron INJ* 2 MG/ML VIAL IV PRN (17:03)
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
--- NOTE | 2019-03-10 18:26 | HP ---
H&P (Free Text) History and Physical: Patient seen and examined in the emergency room with QUOC Lopez. JEFF's H&P reviewed and agree with the plan. Antibiotics, IV fluids, and OR for a laparoscopic cholecystectomy.
[2019-03-10] MEDS ORDERED: ZOSYN 3.375 GM x ONE DOSE over 30 miuntes IVPB ×2 (18:30)
[2019-03-10] MEDS ORDERED: NS 0.9% 100 ML* 100 ML ONE (19:43)
[2019-03-10] MEDS: Morphine INJ* 2 MG/ML 1 ML SYRINGE (TWO MG - NEW SYRINGE VERSION) IV PRN (20:05)
[2019-03-10] MEDS: Ketorolac INJ* 30 MG/ML 1 ML VIAL IV PUSH PRN (20:06)
[2019-03-10] MEDS: Piperacillin/Tazobac ADVAN(*) 3.375 GM in NS 0.9% 100 ML* 100 ML IVPB SCH (20:17)
[2019-03-11] MEDS ORDERED: NS 0.9% 100 ML* 100 ML ONE (01:13)
[2019-03-11] MEDS: Piperacillin/Tazobac ADVAN(*) 3.375 GM in NS 0.9% 100 ML* 100 ML IVPB SCH ×4 (01:18→23:45)
[2019-03-11] MEDS: Morphine 4 MG/ML VIAL (1 ml) 4 MG/ML VIAL IV PRN ×4 (01:19→21:43)
[2019-03-11] MEDS: Ketorolac INJ* 30 MG/ML 1 ML VIAL IV PUSH PRN ×3 (08:24→21:42)
--- NOTE | 2019-03-11 11:31 | PN ---
Progress Note - Progress Note Date of Service: 03/11/19 SOAP: Subjective: Pt seen and examined. Doing "ok" Hungry Objective: Temp Pulse Resp BP Pulse Ox 98.1 F 63 16 102/55 94 03/11/19 11:00 03/11/19 11:00 03/11/19 11:11 03/11/19 11:00 03/11/19 11:00 a and o x3, nad lungs clear abdo: soft/ obese/ tender at RUQ ext wnl labs noted Assessment: acute cholecystitis. Plan: abx pain control OR Wednesday
[2019-03-11] MEDS: Morphine INJ* 2 MG/ML 1 ML SYRINGE (TWO MG - NEW SYRINGE VERSION) IV PRN (15:15)
[2019-03-12] MEDS: Morphine 4 MG/ML VIAL (1 ml) 4 MG/ML VIAL IV PRN ×3 (03:04→20:09)
[2019-03-12] MEDS: Ketorolac INJ* 30 MG/ML 1 ML VIAL IV PUSH PRN ×2 (08:09→16:26)
[2019-03-12] MEDS: Piperacillin/Tazobac ADVAN(*) 3.375 GM in NS 0.9% 100 ML* 100 ML IVPB SCH ×2 (08:51→16:21)
--- NOTE | 2019-03-12 20:17 | PN ---
Progress Note - Progress Note Date of Service: 03/12/19 SOAP: Subjective: Pt seen and examined. Doing well, still with abdo pain. Objective: af vss lungs clear abdo: soft/ obese/ tender at RUQ; no rebound ext wnl Assessment: acute cholecystitis. Plan: abx pain control OR Wednesday
[2019-03-12] MEDS: Famotidine IV* 10 MG/ML 2 ML (20 mg) IV PRN (21:26)
[2019-03-13] MEDS: Morphine 4 MG/ML VIAL (1 ml) 4 MG/ML VIAL IV PRN ×4 (00:05→09:18)
[2019-03-13] MEDS: Piperacillin/Tazobac ADVAN(*) 3.375 GM in NS 0.9% 100 ML* 100 ML IVPB SCH ×2 (00:05→08:57)
[2019-03-13] MEDS: Ketorolac INJ* 30 MG/ML 1 ML VIAL IV PUSH PRN ×2 (02:59→12:30)
[2019-03-13] MEDS: Famotidine IV* 10 MG/ML 2 ML (20 mg) IV PRN (09:59)
[2019-03-13] MEDS ORDERED: Buffered Lidocaine 1% SYRIN* 1 ML/SYRINGE INTRADERM ONE (13:20)
[2019-03-13] MEDS ORDERED: DiMENhydriNATE IV* 50 MG/ML VIAL IV PUSH ONE (13:20)
[2019-03-13] MEDS ORDERED: Dexamethasone IV* 4 MG/ML 1 ML (4 MG) IV SLOW PU ONE (13:20)
[2019-03-13] MEDS ORDERED: Midazolam* 1 MG/ML 5 ML VIAL (5 MG) ONE (13:35)
[2019-03-13] MEDS ORDERED: fentaNYL* 50 MCG/ML 5 ML VIAL (250 MCG VIAL) ONE (13:35)
[2019-03-13] MEDS ORDERED: Lidocaine 2% PF * 5 ML VIAL ONE (13:35)
[2019-03-13] MEDS ORDERED: KETAMINE HCL* 50 MG/ML 10 ML VIAL ONE (13:35)
[2019-03-13] MEDS ORDERED: Propofol* 10 MG/ML 20 ML BTL ONE (13:35)
[2019-03-13] MEDS ORDERED: Bupivacaine 0.5%* 50 ML MDV VIAL ONE (13:54)
[2019-03-13] MEDS ORDERED: Dexamethasone IV* 4 MG/ML 1 ML (4 MG) ONE (13:56)
[2019-03-13] MEDS ORDERED: DiMENhydriNATE IV* 50 MG/ML VIAL ONE (13:56)
[2019-03-13] MEDS ORDERED: Lactated Ringers 1000 ML Bag* 1,000 ML IV SCH (14:00)
[2019-03-13] MEDS ORDERED: fentaNYL* 50 MCG/ML 2 ML VIAL (100 MCG VIAL) IV PRN (14:07)
[2019-03-13] MEDS ORDERED: PROCHLORPERAZINE INJ 5 MG/ML 2 ML VIAL IV PRN (14:07)
[2019-03-13] MEDS ORDERED: Scopolamine 1.5 mg* PATCH TRANSDERM PRN (14:07)
[2019-03-13] MEDS ORDERED: Naloxone* 0.4 MG/ML 1 ML VIAL IV PRN (14:07)
[2019-03-13] MEDS ORDERED: Albuterol 2.5 MG/3 ML NEB.SOL* (0.083%) INH ONE (14:51)
[2019-03-13] MEDS ORDERED: fentaNYL* 50 MCG/ML 2 ML VIAL (100 MCG VIAL) ONE (15:14)
[2019-03-13] MEDS ORDERED: HYDROmorphone INJ1* 1 MG/ML SYRINGE ONE ×2 (15:54→16:59)
[2019-03-13] MEDS: HYDROmorphone INJ1* 1 MG/ML SYRINGE IV PRN ×4 (15:56→17:13)
[2019-03-13 17:15] VITALS: BP 118/71
--- NOTE | 2019-03-14 00:17 | OP ---
DATE OF OPERATION: 03/13/19 - ROOM #401 DATE OF : 78 SURGEON: Juanjo Lambert MD. COLOR TESTER: Amy Mcarthur NP. PRE-OP DIAGNOSIS: Cholecystitis. POST-OP DIAGNOSIS: Cholecystitis. OPERATIVE PROCEDURE: Laparoscopic cholecystectomy. INDICATIONS: Cholecystitis. The risks of surgery including, but not limited to bleeding, infection, injury to intraabdominal contents including the bowel; bile ducts; and liver were explained to the patient, who seemed to understand and agreed to the procedure and all questions were answered. DESCRIPTION OF PROCEDURE: The patient was taken to the operating room and placed supine. Preoperative antibiotics were given. After the successful induction of general endotracheal anesthesia, the abdomen was prepped and draped in sterile fashion. A time-out was performed, indicating correct patient and correct procedure. A 5 mm trocar was placed in the subxiphoid position under direct visualization of the camera using a bladeless Optiview trocar. Pneumoperitoneum was achieved with 12 mmHg. The patient was stable. A camera was placed in the abdomen and the abdomen was scanned. There was no obvious injury from trocar placement. A 12 mm umbilical trocar and a right- sided 5 mm trocar was placed along with a second 5 mm trocar. A few adhesions near the umbilical trocar were taken down using scissors. The patient was placed in the reverse Trendelenburg position, tilted slightly towards the left. The fundus of the gallbladder was grasped and retracted up and over the liver. The cystic duct was identified, isolated, clipped, and divided. The artery was identified, isolated, clipped, and divided. The gallbladder was removed from the hepatic bed. Using a Bovie cautery hook, it was placed into an endobag and removed through the umbilical port site. The right upper quadrant was inspected. EBL was minimal. Hemostasis was intact. Clips were in place. Pneumoperitoneum was released from the abdomen. The trocars were removed. The skin was closed with Monocryl and Steri-Strips. The patient tolerated the procedure well. She was extubated and taken to the recovery room in stable condition. [id number]/[facility] #: [id number] MTDD
[2019-03-16] MEDS ORDERED: Scopolamine PATCH Remove* 1 NOTE MISC PATCH OFF ONE (14:08)
== END 2019-03-13 17:15 | disposition home or self-care (01) | DRG 263 ==
LOC: ED 12:43 → MED 16:59 → OBSVTOIN 17:10
PROVIDERS: ADMIT Surgery; ATTEND Surgery
PROC: 0FT44ZZ Resection of Gallbladder, Percutaneous Endoscopic Approach (ICD-10-PCS; principal; 2019-03-13 20:30)
DX: K80.00 Calculus of gallbladder with acute cholecystitis without obstruction (principal); K21.9 Gastro-esophageal reflux disease without esophagitis; I10 Essential (primary) hypertension; J45.909 Unspecified asthma, uncomplicated; G43.909 Migraine, unspecified, not intractable, without status migrainosus; F41.0 Panic disorder [episodic paroxysmal anxiety]; F17.210 Nicotine dependence, cigarettes, uncomplicated; E66.9 Obesity, unspecified; F32.9 Major depressive disorder, single episode, unspecified; Z98.51 Tubal ligation status; Z82.49 Family history of ischemic heart disease and other diseases of the circulatory system; Z88.1 Allergy status to other antibiotic agents; Z91.040 Latex allergy status; Z88.8 Allergy status to other drugs, medicaments and biological substances; Z91.018 Allergy to other foods; Z68.35 Body mass index [BMI] 35.0-35.9, adult
CPT/HCPCS: 36415; 80053; 83690; 83735; 85025; 88304; 99285; 99406; J1100; J1170; J1240; J1885; J2250; J2270; J2405; J2543; J2704; J3010; J3490